=== PATIENT | male | born 1955 | race American Indian/Alaskan Native ===

== ENCOUNTER 2016-09-10 12:53 | Emergency (ER) | payer MEDICARE ==
[2016-09-10] MEDS ORDERED: TORADOL IM ONE (20:18)
[2016-09-10] MEDS ORDERED: FLEXERIL PO ONE (20:18)
[2016-09-10] MEDS ORDERED: DECADRON IM ONE (20:18)
--- NOTE | 2016-09-10 20:48 | Emergency Department Report ---
Entered by KEENAN WESTON, acting as scribe for SANDY MEI PA. ED Back Pain/Injury HPI - General Chief Complaint: Back Pain/Injury Stated Complaint: BACK PAIN/LEFT LEG PAIN/NUMBNESS Source: patient Limitations: Physical Limitation - History of Present Illness Initial Comments: 61 y/o male with a PMHx of HTN and chronic back pain presents to the ED c/o gradually worsening low back pain that began 2 days ago. Aggravated with movement and alleviated with medication. Rates pain a 10/10 in severity, which he describes as throbbing, sharp, and aching in quality. Patient states the pain radiates down his left leg. Denies any injury, numbness, tingling, chest pain, and SOB. Notes he goes to pain management and he usually receives steroid shots for pain. Took [place], BC powder, Motrin, and Tylenol with no relief. NKDA. LISA Complaint: back pain (low) -: days(s) (2) Similar Symptoms Previously: Yes Place: home Radiation: left leg Severity: severe Severity scale (0 -10): 10 Quality: sharp, aching, other (throbbing) Consistency: constant Improves With: medication Worsens With: movement Context: other (Hx of chronic back pain) Associated Symptoms: denies other symptoms. denies: confusion, weakness, chest pain, numbness, cough, diaphoresis, incontinence, fever/chills, constipation, headaches, abdominal pain, nausea/vomiting, rash, shortness of breath, syncope Treatments Prior to Arrival: NSAIDS, acetaminophen - Related Data Previous Rx's Medication Instructions Recorded Last Taken Type Cyclobenzaprine [Flexeril 10 MG 10 mg PO QHS #30 tablet 09/10/16 Unknown Rx TAB] Meloxicam [Mobic] 15 mg PO DAILY #24 tablet 09/10/16 Unknown Rx Allergies Allergy/AdvReac Type Severity Reaction Status Date / Time No Known Allergies Allergy Unverified 09/10/16 13:38 ED Review of Systems Comment: All other systems reviewed and negative Constitutional: denies: chills, fever Eyes: denies: eye pain, eye discharge, vision change ENT: denies: ear pain, throat pain Respiratory: denies: cough, orthopnea, shortness of breath, SOB with exertion, SOB at rest, stridor, wheezing Cardiovascular: denies: chest pain, palpitations, dyspnea on exertion, orthopnea , edema, syncope Endocrine: no symptoms reported Gastrointestinal: denies: abdominal pain, nausea, diarrhea Genitourinary: denies: urgency, dysuria Musculoskeletal: back pain (low back pain). denies: joint swelling, arthralgia Skin: denies: rash, lesions Neurological: denies: headache, weakness, numbness, paresthesias ED Past Medical Hx - Past Medical History Hx Hypertension: Yes Additional medical history: CHRONIC BACK PAIN - Surgical History Hx Appendectomy: Yes Additional Surgical History: BACK SURGERY - Social History Smoking Status: Former Smoker Substance Use Type: Prescribed - Medications Home Medications: Home Medications Medication Instructions Recorded Confirmed Last Taken Type Cyclobenzaprine [Flexeril 10 MG 10 mg PO QHS #30 tablet 09/10/16 Unknown Rx TAB] Meloxicam [Mobic] 15 mg PO DAILY #24 tablet 09/10/16 Unknown Rx ED Physical Exam - General Limitations: Physical Limitation General appearance: alert, in no apparent distress - Head Head exam: Present: atraumatic, normocephalic - Eye Eye exam: Present: normal appearance, PERRL, EOMI Pupils: Present: normal accommodation - ENT ENT exam: Present: normal exam, mucous membranes moist, normal external ear exam - Neck Neck exam: Present: normal inspection, full ROM. Absent: tenderness, meningismus, lymphadenopathy - Respiratory Respiratory exam: Present: normal lung sounds bilaterally. Absent: respiratory distress, wheezes, rales, rhonchi, stridor, accessory muscle use, decreased breath sounds - Cardiovascular Cardiovascular Exam: Present: regular rate, normal rhythm, normal heart sounds. Absent: systolic murmur, diastolic murmur, rubs, gallop - GI/Abdominal GI/Abdominal exam: Present: soft, normal bowel sounds. Absent: distended - Extremities Exam Extremities exam: Present: normal inspection, full ROM, normal capillary refill. Absent: tenderness, pedal edema, joint swelling, calf tenderness - Back Exam Back exam: Present: full ROM, tenderness (low back tenderness). Absent: paraspinal tenderness, vertebral tenderness - Expanded Back Exam Expanded Back exam: Negative Straight Leg Raising: Left, Right - Neurological Exam Neurological exam: Present: alert, oriented X3. Absent: normal gait ( ambulatory using a cane) - Psychiatric Psychiatric exam: Present: normal affect, normal mood - Skin Skin exam: Present: warm, dry, intact. Absent: rash ED Course Vital Signs 09/10/16 09/10/16 13:33 20:59 Temperature 98.2 F Pulse Rate 102 H 85 Respiratory 18 22 Rate Blood Pressure 141/88 Blood Pressure 166/93 [Left] O2 Sat by Pulse 97 97 Oximetry ED Medical Decision Making - Medical Decision Making 61-year-old male presents with lumbar radiculopathy ED course: Patient received a shot of Decadron and Toradol for pain. He was also given one dose of Flexeril. Patient is not ill-appearing. Discussed the follow-up for a PCP as referred and his pain management physician. Discuss his symptoms return or worsen to return to the ED Patient states understanding and will follow instructions. Vital signs stable. Blood pressure mildly elevated, no symptoms. Discussed with patient to take blood pressure medication upon returning home. Patient states he will comply and take his blood pressure medication. Patient is in no acute distress. ED Disposition Clinical Impression: Lumbar radiculopathy Disposition: - TO HOME OR SELFCARE Is pt being admited?: No Does the pt Need Aspirin: No Condition: Stable Instructions: Lumbar Radiculopathy (ED) Additional Instructions: Follow-up with her primary care physician Take your medication as prescribed Prescriptions: Cyclobenzaprine [Flexeril 10 MG TAB] 10 mg PO QHS #30 tablet Meloxicam [Mobic] 15 mg PO DAILY #24 tablet Referrals: DR BATSHEVA [Other] - 3-5 Days Forms: Work/School Release Form Time of Disposition: 20:25 This documentation as recorded by the ENRICO carrasco JASMINE,accurately reflects the service I personally performed and the decisions made by ,SANDY MEI PA.
[2016-09-10 21:00] VITALS: BP 166/93
== END 2016-09-10 21:00 | disposition home or self-care (01) ==
LOC: ED 12:53
DX: M54.16 Radiculopathy, lumbar region (principal); I10 Essential (primary) hypertension; Z87.891 Personal history of nicotine dependence
CPT/HCPCS: 96372; 99282; J1100; J1885